=== PATIENT | male | born 1955 | race African-American/Black ===

== ENCOUNTER 2022-03-17 01:01 | Inpatient (IN) | payer MEDICARE, OTHER ==
[~2022-03-17] VITALS: Ht 188 cm; Wt 99.8 kg
[2022-03-17] MEDS ORDERED: BLOOD SUGAR DIAGNOSTIC 1 EACH STRIP IN ONE (01:30)
[2022-03-17] MEDS ORDERED: LORAZEPAM 0.5 MG TABLET PO PRN (01:30)
[2022-03-17] MEDS ORDERED: ZOLPIDEM TARTRATE 5 MG TABLET PO PRN (01:30)
[2022-03-17] MEDS ORDERED: MAGNESIUM HYDROXIDE 30 ML UDC PO PRN (01:30)
[2022-03-17] MEDS ORDERED: MAG HYDROX/AL HYDROX/SIMETH 30 ML UDC PO PRN (01:30)
[2022-03-17] MEDS ORDERED: THYR30TA2 PO (01:41)
[2022-03-17] MEDS ORDERED: LAMO100T17 MT (01:41)
[2022-03-17] MEDS ORDERED: SIMV10TA98 PO (01:41)
[2022-03-17] MEDS ORDERED: ASPI-1420 PO (01:41)
[2022-03-17 01:42] VITALS: BP 146/92
--- NOTE | 2022-03-17 01:50 | NUR ---
PATIENT WAS FEELING HUNGRY, HAD SANDWICH AND JUICE, TOLERATED WELL.
--- NOTE | 2022-03-17 01:55 | NUR ---
RN NOTE: PATIENT ASKED THE HEAD RESIDENT NOT TO CALL HIS AT THIS TIME SINCE SHE WOULD BE ASLEEP AT THIS TIME. PATIENT STATED," I CALLED HER ALREADY BEFORE HEADING TO THIS HOSPITAL." INFORMED THE PATIENT THAT PER [facility], HEAD RESIDENT HAS TO INFORM FAMILY MEMBER ABOUT HIS ADMISSION AT [facility] AND HEAD RESIDENT CAN TRY TO CALL HIS AFTER 7AM BUT PATIENT STATED," SHE WAKES UP LATE, I WILL CALL HER ACCORDING TO HER SCHEDULE." HEAD RESIDENT NOTED [facility] NUMBER AND ROOM NUMBER ON A STICKY NOTE AND LEFT AT PATIENT'S NIGHT STAND AND INFORMED TO THE PATIENT SO HE CAN CALL HIS IN THE MORNING.
--- NOTE | 2022-03-17 02:50 | NUR ---
GPS SPRAY WORKER NOTE ADMITTED 66 Y/O MALE FROM [facility], ORIGINALLY FROM HOME. PATIENT IS ON 5150 HOLD FOR DTS. PER 5150 HOLD, PATIENT'S CALLED FIRE DISPATCH BECAUSE HER SWALLOWED 17 OR 18 800MG MOTRIN PILLS. PATIENT STATED HE HAS DEPRESSION AND HAS CONTEMPLATED SUICIDE BEFORE. PATIENT TOOK THE PILLS TO ESCAPE. UPON FACE TO FACE ASSESSMENT, PATIENT IS A & O X 4, VERBALIZES BEING DEPRESSED, LABILE AT TIMES, WANTED TO GET OUT OF THE HOUSE DUE TO SITUATION AT HIS HOUSE BETWEEN HIM AND HIS SINCE BEGINNING OF COVID. PATIENT DENIES SUICIDAL IDEATION UPON ADMISSION TO CHARGE NURSE AND RN AND WILLING TO CONTRACT FOR SAFETY. PATIENT IS CALM AND COOPERATIVE AT THIS TIME. AMBULATORY, STEADY GAIT. NO ACUTE DISTRESS NOTED. NO C/O PAIN VERBALIZED AT THIS TIME. PATIENT SIGNED ALL ADMISSION PAPERWORK, PER PATIENT," MY SKIN IS CLEAR AND GOOD." PATIENT ADVISED OF HIS HOLD AND PATIENT RIGHTS BOOKLET AND PRESCRIPTION MEDICATION GUIDE GIVEN. PATIENT BELONGINGS WERE INVENTORIED FOR [employer]. MRSA WAS COLLECTED AND WILL BE SENT TO LAB IN AM. PT IS UNDER THE PSYCHIATRIC CARE OF DR. CHOI AND MEDICAL CARE OF LETI FRAGOSO. PATIENT BED IS IN LOW LOCKED POSITION, SIDE RAILS UP X 2 FOR SAFETY. WILL CONTINUE TO MONITOR Q15 MINS FOR MOOD, SAFETY AND BEHAVIOR.
--- NOTE | 2022-03-17 06:05 | NUR ---
RN NOTE PATIENT'S ELLIOTT CALLED, SPOKE TO CHARGE NURSE AND CHARGE NURSE INFORMED ELLIOTT ABOUT PATIENT'S ADMISSION AT [facility].
--- NOTE | 2022-03-17 06:08 | NUR ---
RN NOTE PATIENT IS SLEEPING COMFORTABLY AT THIS TIME. NO CHANGES NOTED. WILL ENDORSE TO AM RN FOR CONTINUITY OF CARE.
[2022-03-17 08:00] VITALS: BP 128/89
[2022-03-17 08:22] LABS: ALBUMIN 3.3 g/dL (3.4-5.0); CALCIUM, SERUM 8.7 mg/dL (8.5-10.1); CREATININE 1.1 mg/dL (0.6-1.3); POTASSIUM 3.9 mmol/L (3.5-5.1); TOTAL PROTEIN, SERUM 6.2 g/dL (6.4-8.2)
--- NOTE | 2022-03-17 11:32 | NUR ---
INITIAL DISCHARGE PLAN:The pt. currently resides with his , Alexandra [phone] at home[[address] [facility] [address]; [phone]]. pt. and stated they would like him to a residential treatment mental health program before returnign home. SW will collaborate with psychiatrist to plan an appropriate and safe discharge.
--- NOTE | 2022-03-17 11:33 | NUR ---
Point of contact: SRINATH called and poke with the pt.'s , Alexandra Bustamante [phone] to gather collateral information.
[2022-03-17 16:00] VITALS: BP 148/91
[2022-03-17] MEDS: SIMVASTATIN 10 MG TABLET PO SCH (17:27)
--- NOTE | 2022-03-17 19:15 | NUR ---
GPS RN NOTES RECEIVED PATIENT IN THE DINING ROOM WATCHING TV. A/OX3. NO S/SX OF ACUTE DISTRESS NOTED. PATIENT APPEARS DEPRESSED, LABILE AT TIMES, COOPERATIVE TO CARE. VERBALIZATION OF FEELINGS ENCOURAGED. DENIES SI/HI/AVH AT THIS TIME. SAFETY PRECAUTIONS MAINTAINED. WILL CONTINUE TO MONITOR Q15MIN ROUNDS FOR SAFETY AND BEHAVIOR.
[2022-03-17 20:00] VITALS: BP 147/76
[2022-03-17] MEDS: SERTRALINE HCL 50 MG TABLET PO SCH (21:07)
[2022-03-18 08:00] VITALS: BP 126/78
[2022-03-18] MEDS: ASPIRIN EC 81 MG TABLET.DR PO SCH (08:53)
[2022-03-18] MEDS: THYROID 30 MG TABLET PO SCH (08:53)
[2022-03-18] MEDS: LamoTRIgine 25 MG TABLET PO SCH (08:53)
[2022-03-18 09:22] LABS: HDL CHOLESTEROL 43 mg/dL (40-60); LDL 92 mg/dL (0-99); TRIGLYCERIDES 57 mg/dL (30-150)
[2022-03-18 10:16] LABS: CHOLESTEROL 146 mg/dL (<200)
[2022-03-18 16:00] VITALS: BP 121/85
[2022-03-18] MEDS: SIMVASTATIN 10 MG TABLET PO SCH (18:09)
--- NOTE | 2022-03-18 18:29 | NUR ---
RN-NOTES PATIENT IS VISIBLE IN THE UNIT,A/O X3 ,CALM NO ACUTE DISTRESS NOTED. COMPLIANT WITH MEDICATIONS,ABLE TO MAKE NEEDS KNOWN TO THE STAFF. ALL NEEDS ATTENDED AND MET.AMBULATORY STEADY GAIT.WILL CONT.MONITORING FOR SAFETY AND BEHAVIOR.WILL ENDORSE TO INCOMING NURSE FOR CONTINUITY OF CARE.
--- NOTE | 2022-03-18 19:30 | NUR ---
GPS RN NOTE, RECEIVED PATIENT AWAKE AND IN BED, NO S/S OR COMPLAINTS OF PAIN AT THIS TIME. PATIENT IS DISPLAYING NO S/S OF APPARENT DISTRESS AT THIS TIME. PATIENT BREATHING IS UNLABORED WITH EQUAL RISE AND FALL OF THE CHEST. PATIENT IS ALERT AND ORIENTED X 4 ON ROOM AIR WITH A SPO2 99%. PATIENT IS COMPLIANT WITH MEDICATIONS, CALM, POLITE, AND COOPERATIVE. PATIENT DENIES SUICIDAL AND HOMICIDAL IDEATIONS AT THIS TIME. PATIENT ASSISTED WITH TURNING AND REPOSITIONING Q2HR AND PRN FOR COMFORT AND CIRCULATION. PATIENT HAS NO NEEDS AT THIS TIME. PATIENT EDUCATED ON THE USE OF THE CALL [place]. PATIENT BED SIDE RAILS UP X 2 FOR SAFETY. PATIENT BED IS LOCKED, LOW, WITH BED ALARM ON. WILL CONTINUE TO MONITOR THIS PATIENT Q15 MINUTES WITH THE HELP OF STAFF TO MAINTAIN SAFETY.
[2022-03-18 20:00] VITALS: BP 124/73
[2022-03-18] MEDS: SERTRALINE HCL 50 MG TABLET PO SCH (22:04)
--- NOTE | 2022-03-18 22:05 | NUR ---
GPS RN NOTE, PATIENT HAS A COMPLAINT OF NOT BEING ABLE TO SLEEP AND IS REQUESTING AMBIEN AT THIS TIME. PATIENT VITAL SIGNS ARE STABLE. GAVE AMBIEN 5MG PO HS PRN ORDERED. WILL REASSESS FOR INSOMNIA AND I WILL CONTINUE TO MONITOR THIS PATIENT WITH THE HELP OF STAFF.
[2022-03-19 08:00] VITALS: BP 138/79
[2022-03-19] MEDS: ASPIRIN EC 81 MG TABLET.DR PO SCH (08:42)
[2022-03-19] MEDS: THYROID 30 MG TABLET PO SCH (08:42)
[2022-03-19] MEDS: LamoTRIgine 25 MG TABLET PO SCH (08:42)
--- NOTE | 2022-03-19 11:38 | NUR ---
SRINATH called the following IOP: Mauri Ramon tel: [phone] [facility] [phone] WHO BOTH STATED THEY ARE NOT CONTRACTED WITH MEDICARE AND CANNOT BILL SECONDARY INSURANCE AND CALLED: [facility] TEL:[phone] PER 'S REQUEST WHO STATED THEY DO NOT TAKE MEDICARE AND PT. IS ABOVE THEIR AGE LIMIT WHICH IS 60 YEARS OF AGE. SW ALSO CALLED [facility] IN [phone] WHO STATED THEY ARE NOT CONTRACTED WITH MEDICARE AND CANNOT BILL SECONDARY INSURANCE SW spoke to admission dept. of [facility] outpatient program [[id number] [place] [address] who stated they are contracted with medicare and family can call to do in person intake appointment by calling them directly. SW notified family.
--- NOTE | 2022-03-19 13:00 | NUR ---
Discharge Note: The pt. will be discharging to [facility][[address] [facility] [address]; [phone] FAX: [phone]] per 's request. Pt. will then return back home located at [[address] [facility] [address]; [phone]] with his , Alexandra [phone] at the conclusion of program. Alexandra is aware and agreeable to this discharge plan and stated that she will pickler helper the pt. at 1:15 pm and provide transportation directly to [facility][[address] [facility] [address]; [phone] FAX: [phone]]. SRINATH spoke to [facility] admission director, Radha [phone] who requested clinicals and SRINATH faxed them to FAX: [phone]. Pt. is alert and oriented x4. Pt. denies suicidal or homicidal ideation. Pt denies visual/auditory hallucinations. The pt. is ambulatory and independent with all his ADLs. Pt. will follow up with his PCP: Dr. Thom Soni to manage his medication and Psychologist, Dr. Deepthi Rosenberg for therapy.
--- NOTE | 2022-03-19 14:15 | NUR ---
RN-NOTES PATIENT HAS A DISCHARGE ORDER FROM DR. CHOI ( PSYCHIATRIST) JHONY CHAN MEDICALLY CLEARED PATIENT FOR DISCHARGE. PATIENT WAS DISCHARGED TO [facility].PATIENT A/O X4,AMBULATORY STEADY GAIT. PATIENT DID NOT VERBALIZE SI/HI,DENIES VISUAL/AUDITORY HALLUCINATIONS AT THE TIME OF DISCHARGE. PATIENT SIGN ALL DISCHARGE PAPERS,RX WAS REVIEWED TO THE PATIENT WITH UNDERSTANDING. RX WAS FAXED TO [facility] @ [phone],TEL # [phone] RECEIVED AND CONFIRM BY FABI. INSTRUCTED PATIENT TO CALL 911 OR GO TO THE NEAREST EMERGENCY FACILITY IN CASE OF EMERGENCY.FOLLOW UP WITH PCP IN A WEEK OR NEEDED. SHIPPING PROCESSOR ACCOMPANIED THE PATIENT TO THE LOBBY FOR SAFETY . SENIOR OPERATOR BY ELLIOTT [place] [employer]IA [employer]IVATE [employer].VITAL SIGNS BP 130/72,P68,R18,TEMP. 98,O2 SAT 98% RA. ALL BELONGINGS WAS GIVEN BACK TO THE PATIENT.
== END 2022-03-19 14:15 | DRG 885 ==
LOC: GPS 01:01
PROVIDERS: ADMIT Nurse Practitioner Acute Care; ATTEND Nurse Practitioner Acute Care
DX: F33.1 Major depressive disorder, recurrent, moderate (principal); R45.851 Suicidal ideations; F29 Unspecified psychosis not due to a substance or known physiological condition; F41.9 Anxiety disorder, unspecified; E78.5 Hyperlipidemia, unspecified; E03.9 Hypothyroidism, unspecified; Z79.899 Other long term (current) drug therapy
CPT/HCPCS: 36415; 80053-TC; 80061-TC; 82962-TC; 87081-TC